=== PATIENT | female | born 2000 | race Caucasian/White ===

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

== ENCOUNTER 2018-10-01 15:33 | Outpatient (CLI) | payer MEDICAID ==
[~2018-10-01] VITALS: Ht 157.5 cm; Wt 57.8 kg
[2018-10-01 15:43] VITALS: Ht 157.5 cm; Wt 57.8 kg
[2018-10-01 15:44] VITALS: BP 117/65; PULSE 90; RESP 18
--- NOTE | 2018-10-01 18:29 | TRIAGE ---
OB Triage Datetime Report Generated by CPN: 10/01/2018 18:29 Datetime: 10/01/2018 18:04 Labor Evaluation Frequency: occ Monitor Mode: External Duration (sec)2399: 50-60 Quality: Mild Pattern: Normal: <= 5 Contractions in 10 Minutes Resting Tone [place]: Relaxed Heart Rate FHR Baseline Rate: 135 Monitor Mode: External US Variability: Moderate 6-25 bpm Accelerations: 15X15 Decelerations: None Category: Category I Pain Assessment Pain Presence: None/Denies Pain Type: N/A Datetime: 10/01/2018 17:01 Labor Evaluation Frequency: occ Monitor Mode: External Duration (sec)2399: 60 Quality: Mild Pattern: Normal: <= 5 Contractions in 10 Minutes Resting Tone [place]: Relaxed Heart Rate FHR Baseline Rate: 135 Monitor Mode: External US Variability: Moderate 6-25 bpm Accelerations: 15X15 Decelerations: Variable Category: Category II Pain Assessment Pain Presence: None/Denies Pain Type: N/A Datetime: 10/01/2018 15:39 Assessment Type: Triage Maternal Assessment Level of Consciousness: Keenly Alert, Responsive DTR's/Clonus: DTRs 2+; No Clonus Headache: Denies Blurred Vision: No Respiratory Effort: Unlabored; Regular Rhythm; Equal Expansion Breath Sounds, Left: Clear and Equal Breath Sounds, Right: Clear and Equal Nausea/Vomiting: Denies RUQ Epigastric Pain: Denies Lower Extremities Edema: None Degree: None Upper Extremities Edema: None Degree: None Facial Edema: None Fall Risk Assessment History of Falling: (0) No Secondary Diagnosis: (0) No Ambulatory Aid: (0) Bedrest/Nurse Assist IV Therapy: (0) No Gait: (0) Normal/Bedrest/Immobile Mental Status: (0) Oriented to Own Ability Fall Score: 0 Fall Risk Score Definition: No Risk: No action required Datetime: 10/01/2018 15:38 Time of Arrival: 10/01/2018 15:25 EGA: 37.4 Arrived By: Ambulatory Arrived From: Home Chief Complaint: to ob triage with referral form for caleb smiley, hardikw due to s<d Movement: Present Contractions: Denies/Absent Rupture of Membranes: Denies Vaginal Bleeding: None Vaginal Discharge: Denies Recent Sexual Intercouse: Denies Abdominal Trauma: Not Applicable Patient Complaints: None Time Provider Notified: 10/01/2018 15:59 Provider Notified: Initial Plan: miaht, bpp, efw
--- NOTE | 2018-11-11 20:02 | PN ---
Triage Information Date/Time Reason for visit: NST and biophysical profile for size less than date Weeks of Gestation 37 weeks and 4 days /Para -0-0-1 Diabetes: none Hypertention: none Objective Heart Rate: 140's Contractions: 6-10 Minutes Apart Disposition: Discharge Assessment/Plan 18 years old 2 para 1-0-0-1 with single intrauterine at 37 weeks and 4 days sent for NST and MAYE for size less than dates. She states good movement. She denies nausea, vomiting, shortness of ryan ath, chest pain, headache, visual changes, vaginal bleeding or LOF. -FHR: No sign of metabolic acidosis- Category I -Contractions: Irregular, resolved with p.o. fluid -SVE: Closed/thick/high/ceph/intact -Ultrasound performed: Normal MAYE, BPP 8 out of 8 -Symptoms and sign of labor, preeclampsia, kick count discussed with patient, she voiced understanding. All of her questions answered. -Patient was discharged home in stable condition with the appropriate discharge instructions provided. I would like patient to have close follow-up with her primary physician or outpatient clinic in 1-2 days or return to triage for worsening symptoms or any other urgent concerns. NARA HOYOS Nov 11, 2018 20:02
== END 2018-10-01 18:30 | disposition home or self-care (01) ==
LOC: OBT 15:33 → L-D 15:35 → OBT 18:30
PROVIDERS: ATTEND Obstetrics & Gynecology
DX: O36.8330 Maternal care for abnormalities of the fetal heart rate or rhythm, third trimester, not applicable or unspecified (principal); O26.843 Uterine size-date discrepancy, third trimester; Z3A.37 37 weeks gestation of pregnancy
CPT/HCPCS: 76815; 76818; Z7500; G0463

== ENCOUNTER 2018-10-04 12:10 | Inpatient (IN) | payer MEDICAID ==
[~2018-10-04] VITALS: Ht 157.5 cm; Wt 59.0 kg
[2018-10-04 12:36] VITALS: Ht 157.5 cm; Wt 59.0 kg
[2018-10-04 12:37] VITALS: BP 118/73; PULSE 86; RESP 20
--- NOTE | 2018-10-04 13:41 | HP ---
Date/Time of Note Date/Time of Note DATE: 10/04/18 TIME: 13:31 OB - History Hx of Present Free Text/Dictation History of present illness: 18-year-old G2, P1 at 3 weeks and 1 day presents for induction of labor for postdates. She denies any leakage of fluid/vaginal bleeding/contractions. Obstetric history: Vaginal delivery at 40 weeks and 2016induced labor Gynecology: Last menstrual period approximately 12/27/2017 CHRISTINE: 10/03/2018 Past medical historychildhood asthma Surgical historynone Family history diabetesmother Social historynegative for tobacco/all/recreational drugs Allergiesno known drug allergies Medicationsprenatal vitamins Physical exam General: No apparent distress Cardiovascular: Regular rate and rhythm Pulmonary: Clear to auscultation bilaterally Abdomen: Gravid Uterus: Babak's 3200 g vertex Extremities: Nontender to palpation Psychological: Alert oriented EFM: Category I 120/mod nicole/+accels/no decels CHRISTINE: 10/03/2018 by LMP consistent with a second trimester ultrasound labs: O + H/H 10.5/30.7 Rubella immune Otitis B surface antigen nonreactive HIV negative Gonorrhea chlamydia negative MSAFP negative GBS negative Assessment/plan: 1. Induction of laboradmit to labor and delivery. Routine labs and vitals. CEFM, [place]. Induction of labor via Misoprostol until Bishops is 8 and then Pitocin. Patient has been counseled on induction of labor. All inquiries addressed. Epidural upon patient request. 2. Anemia of pregnancyferrous sulfate Past Family/Social History * Past Medical, Surgical, Family and Obstetric Histories reviewed from chart. OB Admission Exam Vital Signs Vital Signs Vital Signs Date Temp Pulse Resp B/P (MAP) Pulse Ox O2 O2 Flow FiO2 Time Delivery Rate 10/04/18 98.3 86 20 118/73 12:37 (88) STEFFANIE PARR MD Oct 04, 2018 13:40
[2018-10-04] MEDS: LACTATED RINGER'S 1,000 ML IV SCH ×2 (14:26→15:21)
--- NOTE | 2018-10-04 18:56 | TRIAGE ---
OB Triage Datetime Report Generated by CPN: 10/04/2018 18:56 Datetime: 10/04/2018 18:00 Maternal Assessment Level of Consciousness: Keenly Alert, Responsive DTR's/Clonus: DTRs 2+ Headache: Denies Blurred Vision: No Nausea/Vomiting: Denies RUQ Epigastric Pain: Denies Facial Edema: None Labor Evaluation Frequency: IRREG Monitor Mode: External Quality: Mild Pattern: Normal: <= 5 Contractions in 10 Minutes Resting Tone [place]: Relaxed Heart Rate FHR Baseline Rate: 135 Monitor Mode: External US FHR Baseline Changes: No Baseline Change Variability: Moderate 6-25 bpm Accelerations: 15X15 Decelerations: None Category: Category I Pain Assessment Pain Scale: 0 Pain Presence: Intermittent Pain Type: Contraction Pain Location: Abdomen Pain Goal: 0 Membrane Status: Intact Datetime: 10/04/2018 17:25 Assessment Type: Admission Assessment Vaginal Bleeding: None Maternal Assessment Level of Consciousness: Keenly Alert, Responsive DTR's/Clonus: DTRs 2+; No Clonus Headache: Denies Blurred Vision: No Respiratory Effort: Unlabored; Regular Rhythm; Equal Expansion Breath Sounds, Left: Clear and Equal Breath Sounds, Right: Clear and Equal Nausea/Vomiting: Denies RUQ Epigastric Pain: Denies Lower Extremities Edema: None Degree: None Upper Extremities Edema: None Degree: None Facial Edema: None Fall Risk Assessment History of Falling: (0) No Secondary Diagnosis: (0) No Ambulatory Aid: (0) Bedrest/Nurse Assist IV Therapy: (0) No Gait: (0) Normal/Bedrest/Immobile Mental Status: (0) Oriented to Own Ability Fall Score: 0 Fall Risk Score Definition: No Risk: No action required Labor Evaluation Frequency: IRREG Duration (sec)2399: 60 Quality: Mild Pattern: Normal: <= 5 Contractions in 10 Minutes Resting Tone [place]: Relaxed Contraction Comments: PT DOES NOT FEEL UCS Heart Rate FHR Baseline Rate: 145 Variability: Moderate 6-25 bpm Accelerations: 15X15 Decelerations: None Category: Category I Pain Assessment Pain Scale: 0 Pain Presence: Intermittent Pain Type: Contraction Pain Location: Abdomen Pain Goal: 0 Vaginal Exam Dilatation (cms): 0.0 Effacement (%): 0 Membrane Status: Intact Datetime: 10/04/2018 16:29 Labor Evaluation Frequency: IREG Monitor Mode: External Quality: Mild Pattern: Normal: <= 5 Contractions in 10 Minutes Resting Tone [place]: Relaxed Heart Rate FHR Baseline Rate: 145 Monitor Mode: External US FHR Baseline Changes: No Baseline Change Variability: Moderate 6-25 bpm Accelerations: 15X15 Decelerations: None Category: Category I Pain Assessment Pain Scale: 0 Pain Presence: Intermittent Pain Type: N/A Pain Location: Abdomen Pain Goal: 0 Datetime: 10/04/2018 15:29 Maternal Assessment Level of Consciousness: Keenly Alert, Responsive DTR's/Clonus: DTRs 2+ Headache: Denies Blurred Vision: No Nausea/Vomiting: Denies RUQ Epigastric Pain: Denies Facial Edema: None Labor Evaluation Frequency: IRREG Monitor Mode: External Quality: Mild Pattern: Normal: <= 5 Contractions in 10 Minutes Resting Tone [place]: Relaxed Heart Rate FHR Baseline Rate: 145 Monitor Mode: External US FHR Baseline Changes: No Baseline Change Variability: Moderate 6-25 bpm Accelerations: 15X15 Decelerations: None Category: Category I Pain Assessment Pain Scale: 0 Pain Presence: Intermittent Pain Type: Contraction Pain Location: Abdomen Pain Goal: 0 Pain Assessment Comments: PT DENIES FEELING UCS Vaginal Exam Dilatation (cms): 0.0 Effacement (%): 0 Exam By: VILLAGOMEZ RN Membrane Status: Intact Vaginal Bleeding: None Cervix, Consistency: Moderate Cervix, Position: Midposition Datetime: 10/04/2018 14:26 Maternal Assessment Level of Consciousness: Keenly Alert, Responsive DTR's/Clonus: DTRs 2+ Headache: Denies Blurred Vision: No Nausea/Vomiting: Denies RUQ Epigastric Pain: Denies Facial Edema: None Labor Evaluation Frequency: IRREG Monitor Mode: External Duration (sec)2399: 60 Quality: Mild Pattern: Normal: <= 5 Contractions in 10 Minutes Resting Tone [place]: Relaxed Heart Rate FHR Baseline Rate: 140 Monitor Mode: External US FHR Baseline Changes: No Baseline Change Variability: Moderate 6-25 bpm Accelerations: 15X15 Decelerations: None Category: Category I Pain Assessment Pain Scale: 0 Pain Presence: Intermittent Pain Type: Contraction Pain Location: Abdomen Pain Goal: 0 Pain Assessment Comments: PT DENIES FEELING UCS Membrane Status: Intact Datetime: 10/04/2018 13:23 Maternal Assessment Level of Consciousness: Keenly Alert, Responsive DTR's/Clonus: DTRs 2+ Headache: Denies Blurred Vision: No Nausea/Vomiting: Denies RUQ Epigastric Pain: Denies Facial Edema: None Labor Evaluation Frequency: irreg Monitor Mode: External Quality: Mild Pattern: Normal: <= 5 Contractions in 10 Minutes Resting Tone [place]: Relaxed Heart Rate FHR Baseline Rate: 135 Monitor Mode: External US FHR Baseline Changes: No Baseline Change Variability: Moderate 6-25 bpm Accelerations: 15X15 Decelerations: None Category: Category I Pain Assessment Pain Scale: 0 Pain Presence: Intermittent Pain Type: Contraction Pain Location: Abdomen Pain Goal: 0 Vaginal Exam Dilatation (cms): 0.0 Effacement (%): 0 Exam By: alpesh rn Membrane Status: Intact Vaginal Bleeding: None Cervix, Consistency: Moderate Cervix, Position: Posterior Datetime: 10/04/2018 12:58 Maternal Assessment Level of Consciousness: Keenly Alert, Responsive DTR's/Clonus: DTRs 2+; No Clonus Headache: Denies Blurred Vision: No Respiratory Effort: Unlabored; Regular Rhythm; Equal Expansion Breath Sounds, Left: Clear and Equal Breath Sounds, Right: Clear and Equal Nausea/Vomiting: Denies RUQ Epigastric Pain: Denies Facial Edema: None Fall Risk Assessment History of Falling: (0) No Secondary Diagnosis: (0) No Ambulatory Aid: (0) Bedrest/Nurse Assist Gait: (0) Normal/Bedrest/Immobile Mental Status: (0) Oriented to Own Ability Datetime: 10/04/2018 12:32 Maternal Assessment Level of Consciousness: Keenly Alert, Responsive DTR's/Clonus: DTRs 2+; No Clonus Headache: Denies Blurred Vision: No Respiratory Effort: Unlabored; Regular Rhythm; Equal Expansion Breath Sounds, Left: Clear and Equal Breath Sounds, Right: Clear and Equal Nausea/Vomiting: Denies RUQ Epigastric Pain: Denies Facial Edema: None Temperature Route: Axillary Fall Risk Assessment History of Falling: (0) No Secondary Diagnosis: (0) No Ambulatory Aid: (0) Bedrest/Nurse Assist IV Therapy: (0) No Gait: (0) Normal/Bedrest/Immobile Mental Status: (0) Oriented to Own Ability Fall Score: 0 Fall Risk Score Definition: No Risk: No action required Datetime: 10/04/2018 12:28 Maternal Assessment Level of Consciousness: Keenly Alert, Responsive DTR's/Clonus: DTRs 2+ Headache: Denies Blurred Vision: No Nausea/Vomiting: Denies RUQ Epigastric Pain: Denies Facial Edema: None Monitor Mode: External Pattern: Normal: <= 5 Contractions in 10 Minutes Resting Tone [place]: Relaxed Heart Rate FHR Baseline Rate: 140 Monitor Mode: External US FHR Baseline Changes: No Baseline Change Variability: Moderate 6-25 bpm Accelerations: 15X15 Decelerations: None Category: Category I Pain Assessment Pain Scale: 0 Pain Presence: Intermittent Pain Type: Contraction Pain Location: Abdomen Pain Goal: 0 Membrane Status: Intact Datetime: 10/04/2018 12:13 Time of Arrival: 10/04/2018 17:00 EGA: 38.0 Arrived By: Ambulatory Arrived From: Home Chief Complaint: R/O IUGR Movement: Present Contractions: Irregular Rupture of Membranes: Denies Vaginal Bleeding: None Vaginal Discharge: Denies Recent Sexual Intercouse: Denies Abdominal Trauma: Not Applicable Patient Complaints: None Time Provider Notified: 10/04/2018 12:30 Provider Notified: DR MILESTONE Initial Plan: EFM,US Datetime: 10/01/2018 15:39 Fall Score: 0 Fall Risk Score Definition: No Risk: No action required Datetime: 10/01/2018 15:38 EGA: 37.4
--- NOTE | 2018-10-04 18:57 | HP ---
Date/Time of Note Date/Time of Note DATE: 10/04/18 TIME: 18:57 OB - History Hx of Present Free Text/Dictation History of present illness:18-year-old G2, P1 at 38 weeks gestation with intrauterine growth restriction presents for biophysical profile. CHRISTINE: 10/18/2018 by LMP consistent with a first trimester ultrasound Past medical history: Noncontributory Past surgical history: section 2016 Gynecology history: Last menstrual period 01/10/2018 Obstetric history: section at 38 weeks gestation in 2017 Social history: Negative for tobacco/alcohol/recreational drugs Allergies: No known drug allergies Medications: vitamins Sickle exam: General: No apparent distress Cardiovascular: Regular rate rhythm Pulmonary: Clear to auscultation bilaterally Abdomen: Gravid Uterus: 2400 g text Psychological: Alert and oriented Extremities: Nontender to palpation Vitals: Stable and within normal limits Electronic monitor: Category 1 Ultrasound: 10/01/2018 with an estimated weight of 2435 g 3.7 percentile with a systolic diastolic ratio measuring 2.4, 2.0 and 2.3 Physical profile: 8 out of 8 Ultrasound 10/04/2018 biophysical profile 8 out of 8 and systolic diastolic ratio 2.4, 2.0, 2.3 Assessment/plan: 1. Intrauterine growth restriction-patient will be admitted to labor and delivery for section on 10/05/2017. Routine labs. Continues electronic monitor. MFM consulted. Patient informed of risks benefits alternatives indications. Consented for section. 2. History of sectionpatient for repeat section on 10/05/2017. N.p.o. after midnight. Past Family/Social History * Past Medical, Surgical, Family and Obstetric Histories reviewed from chart. OB Admission Exam Vital Signs Vital Signs Vital Signs Date Temp Pulse Resp B/P (MAP) Pulse Ox O2 O2 Flow FiO2 Time Delivery Rate 10/04/18 98.3 86 20 118/73 12:37 (88) MILESTONESTEFFANIE MD Oct 04, 2018 18:57
[2018-10-04] MEDS ORDERED: CARBOPROST 250 MCG INJ IM PRN (19:00)
[2018-10-04] MEDS ORDERED: CEFAZOLIN 2 GM/50 ML (PMX) 50 ML IVPB SCH (19:00)
[2018-10-04] MEDS ORDERED: MISOPROSTOL 200 MCG TAB PR PRN (19:00)
[2018-10-04] MEDS ORDERED: OXYTOCIN 30 UNITS/LR 500 ML IV PRN (19:00)
[2018-10-04] MEDS ORDERED: METHYLERGONOVINE 0.2 MG INJ IM PRN (19:00)
[2018-10-04] MEDS ORDERED: OXYCODONE/ACETAMINOPHEN (5/325) TAB PO PRN (19:00)
[2018-10-04] MEDS ORDERED: IBUPROFEN 600 MG TAB PO PRN (19:00)
[2018-10-04] MEDS ORDERED: LIDOCAINE 1% (MPF) 30 ML INJ INJ PRN (19:00)
[2018-10-04] MEDS ORDERED: OXYTOCIN 30 UNITS/LR 500 ML IV SCH ×2 (19:00)
[2018-10-05] MEDS: LACTATED RINGER'S 1,000 ML IV SCH ×4 (01:30→14:22)
[2018-10-05] MEDS ORDERED: AZITHROMYCIN 500MG/NS (PMX) 250 ML IVPB STA (07:28)
[2018-10-05] MEDS ORDERED: ONDANSETRON 4 MG INJ ONE (08:06)
[2018-10-05] MEDS ORDERED: morphine SULFATE/PF (10 MG/10 ML) INJ ONE (08:19)
[2018-10-05] MEDS ORDERED: METOCLOPRAMIDE 10 MG INJ ONE (08:30)
[2018-10-05] MEDS ORDERED: LACTATED RINGER'S 1,000 ML IV ONE (08:48)
--- NOTE | 2018-10-05 08:48 | PREAC ---
Date/Time of Note Date/Time of Note DATE: 10/05/18 TIME: 08:45 Anesthesia Eval and Record Evaluation Time Pre-Procedure Interview DATE: 10/05/18 TIME: 07:53 Age 18 Sex female NPO: 8 hrs Preoperative diagnosis iup @ 40 wks, contractions, iugr, postdates, prev. c/s Planned procedure repeat c/s Past Medical History Past Medical History: Includes : : (2), Para: (1), Gestational age: (40 wkws.), Other (iugr) Surgery & Anesthesia Issues No known issue Meds Anticoagulation: No Beta Charlie within 24 hr: No Reason Beta Charlie not given: Pt. not on B-Charlie Active Scripts Loperamide Hcl* (Imodium*) 2 Mg Capsule, 2 MG PO .AFTER EA LOOSE BM PRN for DIARRHEA, #10 TAB Prov:[place] SPARROW MD 02/28/16 Reported Medications Folic Acid* (Folic Acid*) 0.8 Mg Tablet, 0.8 MG PO DAILY, TAB 02/28/16 Multivit/Min/Fol Ac/Iron/Pren* ( S*) 1 Tab Tab, 1 TAB PO DAILY, TAB 02/28/16 Current Medications Lactated Ringer's 1,000 ml @ 125 mls/hr Q8H IV Last administered on 10/05/18at 01:30; Admin Dose 125 MLS/HR; Start 10/04/18 at 13:30 Lactated Ringer's 1,000 ml @ 125 mls/hr Q8H IV Last administered on 10/05/18at 07:40; Admin Dose 125 MLS/HR; Start 10/05/18 at 05:00 Lidocaine (Xylocaine 1% (Mpf)) 30 ml ONCE PRN INJ .EPISIOTOMY; Start 10/04/18 at 19:00 Oxytocin/Lactated Ringer's 500 ml @ 500 mls/hr ONCE POST IV ; Start 10/04/18 at 19:00 Oxytocin/Lactated Ringer's 500 ml @ 125 mls/hr POST IV ; Start 10/04/18 at 19:00 Ibuprofen (Motrin) 600 mg ONCE PRN PO .PAIN 1-5; Start 10/04/18 at 19:00 Oxycodone/ Acetaminophen (Percocet (5/ 325)) 2 tab ONCE PRN PO .PAIN 6-10; Start 10/04/18 at 19:00 Oxytocin/Lactated Ringer's 500 ml @ 0 mls/hr ONCE PRN IV .VAGINAL BLEEDING; Start 10/04/18 at 19:00 Methylergonovine Maleate (Methergine) 0.2 mg ONCE PRN IM .VAGINAL BLEEDING; Start 10/04/18 at 19:00 Carboprost Tromethamine (Hemabate) 250 mcg ONCE PRN IM .VAGINAL BLEEDING; Start 10/04/18 at 19:00 Misoprostol (Cytotec) 1,000 mcg ONCE PRN UT .VAGINAL BLEEDING; Start 10/04/18 at 19:00 Cefazolin Sodium/ Dextrose 50 ml @ 100 mls/hr ONCE IVPB ; Start 10/04/18 at 19:00 Meds reviewed: Yes Allergies Coded Allergies: No Known Drug Allergies (Verified Allergy, Unknown, 02/28/16) Allergies Reviewed: Yes Labs/Studies Labs Reviewed: Reviewed by anesthesiologist Result Diagram: 10/04/18 1810 Laboratory Tests 10/04/18 18:10 Blood Bank Test 10/04/18 18:10 Antibody Screen NEGATIVE Blood Type O POSITIVE Rh Immune Globulin Candidate NO test: Positive Studies: ECG (n/a), CXR (n/a) Pre-procedure Exam Last vitals Vital Signs Date Temp Pulse Resp B/P (MAP) Pulse Ox O2 O2 Flow FiO2 Time Delivery Rate 10/04/18 98.3 86 20 118/73 12:37 (88) Airway: Adequate mouth opening, Adequate thyromental dist Mallampati: Mallampati II Teeth: Normal Lung: Normal Heart: Normal ASA Physical Status ASA physical status: 2 Emergency: E Planned Anesthetic General/MAC: MAC Neuraxial: Spinal Planned Pain Management Sub-arachniod narcotics, Parenteral pain med, Local by surgeon Pre-operative Attestations Prior to commencing anesthesia and surgery, the patient was re-evaluated, there was verification of: *The patient's identity *The results of appropriate recent lab work and preoperative vital signs *The above evaluation not changing prior to induction *Anesthetic plan, risk benefits, alternative and complications discussed with patient/family; questions answered; patient/family understands, accepts and wishes to proceed. Chairman & Ceo used SHARMIN HARTMANN MD Oct 05, 2018 08:48
[2018-10-05] MEDS ORDERED: MIDAZOLAM 1 MG/ML 2 ML INJ ONE (08:52)
[2018-10-05] MEDS ORDERED: MEPERIDINE 25 MG INJ IV PRN (09:00)
[2018-10-05] MEDS ORDERED: NALOXONE (0.4 MG/ML) INJ IV PRN (09:00)
[2018-10-05] MEDS ORDERED: EPHEDrine 25 MG/5 ML SYG IV PRN (09:00)
[2018-10-05] MEDS ORDERED: HYDROmorphONE 0.5 MG/0.5 ML SYG IV PRN ×2 (09:00)
[2018-10-05] MEDS ORDERED: ONDANSETRON 4 MG INJ IV PRN (09:00)
[2018-10-05] MEDS ORDERED: MIDAZOLAM 1 MG/ML 2 ML INJ IV PRN (09:00)
[2018-10-05] MEDS ORDERED: NALBUPHINE HCL (10 MG/1 ML) INJ IV PRN (09:00)
[2018-10-05] MEDS ORDERED: DIPHENHYDRAMINE 50 MG INJ IV PRN ×2 (09:00)
[2018-10-05] MEDS ORDERED: KETOROLAC 30 MG INJ IV PRN (09:00)
[2018-10-05] MEDS ORDERED: ZOLPIDEM 5 MG TAB PO PRN (09:00)
[2018-10-05] MEDS ORDERED: OXYTOCIN 30 UNITS/LR 500 ML IV SCH (09:42)
[2018-10-05] MEDS ORDERED: OXYTOCIN 30 UNITS/LR 1,000 ML IV ONE (09:50)
[2018-10-05] MEDS ORDERED: EPHEDrine SULFATE 50 MG/5 ML SYG ONE (09:50)
[2018-10-05] MEDS ORDERED: PHENYLephrine 10 MG INJ ONE (09:50)
--- NOTE | 2018-10-05 09:56 | OPR ---
Operative Report Planned Procedure Procedure date Oct 05, 2018 Procedure(s) low transverse section Performed by see signature line Post-Procedure Findings Live Baby [], Apgars [] and [], weight [], position [], [] presentation []cord. Specimen(s) none Grafts/Implant(s) none Complication(s) none MILESTONE,STEFFANIE DHILLON Oct 05, 2018 09:56
[2018-10-05] MEDS ORDERED: CARBOPROST 250 MCG INJ IM PRN (10:00)
[2018-10-05] MEDS ORDERED: METHYLERGONOVINE 0.2 MG INJ IM PRN (10:00)
[2018-10-05] MEDS ORDERED: OXYTOCIN 30 UNITS/LR 500 ML IV PRN (10:00)
[2018-10-05] MEDS ORDERED: NACL 0.9% 3 ML SYG IV SCH (10:00)
[2018-10-05] MEDS ORDERED: OXYCODONE/ACETAMINOPHEN (5/325) TAB PO PRN ×2 (10:00)
[2018-10-05] MEDS ORDERED: MISOPROSTOL 200 MCG TAB PR PRN (10:00)
--- NOTE | 2018-10-05 11:22 | OPR ---
Operative Report Planned Procedure Free Text/Dictation Preoperative Diagnosis 1. IUP at 38 1/7 weeks 2. Intrauterine growth restriction Postoperative Diagnosis Same Operation/Procedure Performed: low transverse section Surgeon: MD Rubén Pie Icer Machine: MD Afsaneh Anesthesia: Epidural Estimated Blood Loss: 500 ml Specimen: Cord blood Implants: Surgicel Tubes/Drains: None Complications: None Fluids: Crystalloid Urine output: 300 ml clear Findings: Female weighing 2645 g, apgars 9/9. Adhesions from bladder to anterior aspect of uterus. Keloid noted around skin incision. Normal uterus. Bilateral normal appearing fallopian tubes and ovaries. Indications: Intrauterine growth restriction Procedure: After informed consent was obtained, the patient was taken to the operating room. She was placed in dorsal lithotomy position with left lateral tilt to avoid aortocaval compression. Bilateral sequential compression devices were placed on the patient's lower extremities. She underwent anesthesia without difficulty. She was prepped and draped in routine sterile fashion. A timeout was performed identifying the patient and the procedure and all parties were in agreement. An Allis skin test confirmed adequate anesthesia. An 8 cm transverse skin incision was made overlying the prior skin incision and carried down to the underlying fascia using a scalpel and bovie. The fascia was nicked on either sides of the linea alba and extended bilaterally. The peritoneum was entered bluntly. An Nicolas retractor was placed. Adhesions were lysed from bladder to anterior aspect of uterus via sharp and blunt dissection. Hysterotomy was next performed clear fluid noted. Infants head was grasped, elevated to the level of the incision and delivered atraumatically followed by the body. The mouth and nares were bulb suctioned. The cord was clamped x2 divided between the clamps. Cord blood was collected. The placenta was delivered manually intact with three-vessel cord. The uterus was cleared of all clots and debris's using a moist lap sponge. The uterine incision was closed in a 2 layer fashion using 0 Monocryl. Surgicel was placed over the incision and anterior aspect of the uterus. Hemostasis was noted. The fascia was reapproximated using 0 Monocryl. The subcutaneous tissues was reapproximated using 3-0 Monocryl. The skin was was reapproximated using 3-0 Monocryl. Steri- Strips were applied. Dressing was applied as well as an abdominal binder. The uterus was firm at the end of the procedure. The patient tolerated the procedure well was transferred to recovery in stable condition. Procedure date Oct 05, 2018 Procedure(s) low transverse section Performed by see signature line Pie Icer Machine: ELODIA PAINTING MD Pre-procedure diagnosis IUGR [id number] Anesthesia Type: [id number] epidural Post-Procedure Post-procedure diagnosis same Findings Live Baby female, Apgars 9 and 9, weight 2645 g, position oa, vertex presentation no nuchal cord. Estimated Blood Loss: 500 - 600 mls Specimen(s) none Grafts/Implant(s) none Complication(s) none Procedure Description section STEFFANIE PARR MD Oct 05, 2018 11:17
[2018-10-05 13:15] VITALS: BP 117/60; PULSE 88; RESP 16
[2018-10-05 16:15] VITALS: BP 111/55; PULSE 84; RESP 18
--- NOTE | 2018-10-05 16:53 | PAC ---
Date/Time of Note Date/Time of Note DATE: 10/05/18 TIME: 16:53 Post-Anesthesia Notes Post-Anesthesia Note Last documented vital signs Vital Signs Date Temp Pulse Resp B/P (MAP) Pulse Ox O2 O2 Flow FiO2 Time Delivery Rate 10/05/18 98.2 84 18 111/55 98 Room Air 16:15 (73) Activity: WNL Respiratory function: WNL Cardiovascular function: WNL Mental status: Baseline Pain reasonably controlled: Yes Hydration appropriate: Yes Nausea/Vomiting absent: Yes SHARMIN HARTMANN MD Oct 05, 2018 16:53
--- NOTE | 2018-10-05 16:55 | OPPN ---
Date/Time of Note Date/Time of Note DATE: 10/06/18 TIME: 00:05 Anesthesia Follow up Anesthesia Follow up Last documented vital signs Vital Signs Date Temp Pulse Resp B/P (MAP) Pulse Ox O2 O2 Flow FiO2 Time Delivery Rate 10/05/18 98.2 84 18 111/55 98 Room Air 16:15 (73) Respiratory function: WNL Cardiovascular function: WNL Comments S: pt. pod #1. min. bt pain. min. need for bt pain meds ie. nsaids/opiates. ambulating. min. n/v. O: vss, afeb. A: min. bt pain sec. to it mso4. P: no complications. SHARMIN HARTMANN MD Oct 05, 2018 16:55
[2018-10-05 19:40] VITALS: BP 120/76; PULSE 88; RESP 18
[2018-10-06] VITALS: BP 109/65; PULSE 86; RESP 18
[2018-10-06] MEDS: LACTATED RINGER'S 1,000 ML IV SCH ×2 (00:18→05:00)
[2018-10-06 04:20] VITALS: BP 96/60; PULSE 88; RESP 18
[2018-10-06 08:30] VITALS: BP 98/54; PULSE 102; RESP 17
--- NOTE | 2018-10-06 10:27 | PN ---
Date/Time of Note Date/Time of Note DATE: 10/06/18 TIME: 10:27 OB Subjective Subjective Subjective Subjective: Tolerating regular diet. Not voiding. De [place]zman out in a.m. Not Ambulating. Vaginal bleeding within normal limits. Breast feeding. Complaints: None Mode of delivery: section Objective: Vital signs: 96/60 H/H: 10.9/31.6 General: No apparent distress Breast: Normal Extremities: nontender to palpation Incision: Dressing in place Assessment/plan: 1. Postoperative day #1 section-routine care 2. Anemia acute blood loss-ferrous sulfate Disposition: likely discharge tomorrow MILESTONE,STEFFANIE DHILLON Oct 06, 2018 10:27
[2018-10-06] MEDS: IBUPROFEN 600 MG TAB PO SCH ×3 (11:45→23:48)
[2018-10-06 16:20] VITALS: BP 88/58; PULSE 93; RESP 16
[2018-10-06 19:30] VITALS: BP 122/72; PULSE 78; RESP 18
[2018-10-07 04:10] VITALS: BP 103/75; PULSE 75; RESP 20
[2018-10-07] MEDS: IBUPROFEN 600 MG TAB PO SCH ×3 (05:29→13:21)
[2018-10-07 08:00] VITALS: BP 101/60; PULSE 82; RESP 18
--- NOTE | 2018-10-07 12:56 | QN ---
Documentation Comment POD#2 is stable afebrile tolerates Diet No VB +Flatus +voids VS stable Gen NAD Abd soft NT ND Genitalia No blood at perineum ->ambulation -->Discharge plan tomorrow CHRISTINE HOLDER M.D. Oct 07, 2018 12:56
[2018-10-07 16:00] VITALS: BP 110/65; PULSE 81; RESP 16
[2018-10-07 20:05] VITALS: BP 117/73; PULSE 85; RESP 19
[2018-10-08] MEDS: IBUPROFEN 600 MG TAB PO SCH ×3 (00:28→13:24)
[2018-10-08 04:00] VITALS: BP 111/60; PULSE 71; RESP 18
[2018-10-08 07:30] VITALS: BP 114/65; PULSE 76; RESP 18
--- NOTE | 2018-10-08 12:13 | PN ---
Date/Time of Note Date/Time of Note DATE: 10/08/18 TIME: 12:11 OB Subjective Subjective Subjective POD#3 Patient is doing well. She denies nausea, vomiting, shortness of breath, chest pain, headache. She has been ambulating without difficulty, tolerating regular diet. Pain is well controlled on current medications OB Objective Objective Objective VS - Last 72 Hours, by Label Date Temp Pulse Resp B/P (MAP) Pulse Ox O2 O2 Flow FiO2 Time Delivery Rate 10/08/18 98.2 76 18 114/65 Room Air 07:30 (81) 10/08/18 97.8 71 18 111/60 Room Air 04:00 (77) 10/07/18 98.1 85 19 117/73 Room Air 20:05 (88) 10/07/18 98.0 81 16 110/65 Room Air 16:00 (80) 10/07/18 98.2 82 18 101/60 Room Air 08:00 (74) 10/07/18 98.3 75 20 103/75 Room Air 04:10 (84) 10/06/18 98.3 78 18 122/72 Room Air 19:30 (89) 10/06/18 98.1 93 16 88/58 (68) Room Air 16:20 10/06/18 98.7 102 17 98/54 (69) 99 Room Air 08:30 10/06/18 98.6 88 18 96/60 (72) Room Air 04:20 10/06/18 98.4 86 18 109/65 97 Room Air 00:00 (80) 10/05/18 98.1 88 18 120/76 96 Room Air 19:40 (91) 10/05/18 98.2 84 18 111/55 98 Room Air 16:15 (73) 10/05/18 97.8 88 16 117/60 98 Room Air 13:15 (79) General: AAO X 3, comfortable, NAD, appropriate mood and affect. ABD: +BS. Soft, non-tender. Uterus 2 cm below umbilicus Incision: Clear, dry, intact. No erythema, drainage or induration. Flank: No CVA tenderness (B/L) LE: Mild edema. No clubbing, cyanosis, thigh or calf tenderness (B/L). Homans 'sign is negative OB Assessment/Plan Other plan: 18 y/o s/p repeat delivery at 38 weeks and 1 day for IUGR. POD#3 - AF, VSS - Baby is doing well, at bed side. She is bonding well - Contraception methods with R/B/A/FR discussed - Continue care - Discharge home - Rx and instruction given - Follow up in one and 6 weeks NARA HOYOS Oct 08, 2018 12:13
--- NOTE | 2018-10-08 12:14 | DS ---
Date/Time of Note Date/Time of Note DATE: 10/08/18 TIME: 12:13 Obstetrical Discharge Record Final Diagnosis Final Diagnosis: Term delivered Other Final Diagnosis 18 y/o s/p repeat delivery at 38 weeks and 1 day for IUGR. POD#3. Post course was unremarkable. She is ambulating and tolerating regular diet. She is voiding without difficulty. Pain is controlled on current medication. - AF, VSS - Baby is doing well, at bed side. She is bonding well - Contraception methods with R/B/A/FR discussed - Continue care - Discharge home - Rx and instruction given - Follow up in one and 6 weeks Section Section: Repeat Condition on Discharge Physical Assessment Voiding: Yes Bowel Movement: Yes Breast: Soft, non-tender Fundus: Firm Calf Tenderness: No Patient Condition: Stable NARA HOYOS Oct 08, 2018 12:14
--- NOTE | 2018-10-09 17:48 | DELSUM ---
Delivery Summary A-C Datetime Report Generated by N: 10/09/2018 17:48 DELIVERY PERSONNEL Respiratory Care Instructor: Urmila Vargas MATERNAL INFORMATION Delivery Anesthesia: Spinal Medications in Delivery: SEE ANESTHESIA FLOWSHEET Delivery QBL (ml): 500 (Annotations: Data stored by [facility] on behalf of user) Placenta Cultured: No Maternal Complications: None LABOR SUMMARY EDC: 10/18/2018 00:00 No. Babies in Womb: 1 Attempted: No Labor Anesthesia: SPINAL LABOR INFORMATION Reason for Induction: Not Applicable Group B Beta Strep: Positive Antibiotics # of Doses: 2 Antibiotics Time of Last Dose: 10/05/2018 08:30 Steroids Given: None Reason Steroids Not Administered: Not Applicable MEMBRANES Membranes Rupture Method: Artificial Rupture of Membranes: 10/05/2018 08:49 Length of Rupture (hr): 0.02 Amniotic Fluid Color: Clear Amniotic Fluid Amount: Moderate Amniotic Fluid Odor: None STAGES OF LABOR Stage 3 hr: 0 Stage 3 min: 1 CSECTION DELIVERY Primary Indication: Repeat Elective Other Primary Indication: IUGR CSection Urgency: Elective CSection Incidence: Repeat Labor: N/A Elective: N/A CSection Incision: Lower Uterine Transverse BABY A INFORMATION Infant Delivery Date/Time: 10/05/2018 08:50 Method of Delivery: Born in Route : No : N/A Forceps: N/A Vacuum Extraction: N/A Shoulder Dystocia : N/A SHOULDER DYSTOCIA BABY A Delivery Date/Time: 10/05/2018 08:50 PRESENTATION/POSITION BABY A Presentation: Cephalic Cephalic Presentation: Vertex Breech Presentation: N/A PLACENTA INFORMATION BABY A Placenta Delivery Time : 10/05/2018 08:51 Placenta Method of Delivery: Manual Removal Placenta Status: Delivered SCORES BABY A Heart Rate 1 min: >100 bpm Resp Effort 1 min: Good Cry Reflex Irritability 1 min: Cough/Sneeze/Pulls Away Muscle Tone 1 min: Active Motion Color 1 min: Body Peyton, Extremit Blue Resuscitation Effort 1 min: Tactile Stimulation SCORE 1 MIN: 9 Heart Rate 5 min: >100 bpm Resp Effort 5 min: Good Cry Reflex Irritability 5 min: Cough/Sneeze/Pulls Away Muscle Tone 5 min: Active Motion Color 5 min: Body Peyton, Extremit Blue Resuscitation Effort 5 min: Tactile Stimulation SCORE 5 MIN: 9 INFANT INFORMATION BABY A Gestational Age at Delivery: 38.1 Gestational Status: Early Term- 37- 38.6 Weeks Infant Outcome : Liveborn, with signs of life Infant Condition : Stable Sex: Female IDENTIFICATION/MEDS BABY A ID Band Number: [id number] ID Band Location: Right Leg; Left Arm Sensor Number: [id number] Sensor Location : Cord Clamp Vitamin K Given : Not Given Erythromycin Given: Not Given WEIGHT/LENGTH BABY A Infant Birthweight (gm): 2675 Weight (lb): 5 Weight (oz): 14 Length (in): 18.50 Infant Length (cm): 46.99 CORD INFORMATION BABY A No. Cord Vessels: 3 Nuchal Cord : N/A Cord Blood Taken: Yes Suction: Mouth; Nose ASSESSMENT BABY A Infant Complications: None Physical Findings at Delivery: Within Normal Limits Infant Respirations: Appears Normal Pre Sales Technical Consultant/ALS Called : Yes Infant Care By: BEBO CASTANO Transferred To: Remains with Mother
== END 2018-10-08 17:30 | disposition home or self-care (01) | DRG 787 ==
LOC: OBT 12:10 → L-D 12:10 → OBT 17:00 → L-D 17:00 → PP1 10-05 12:58
PROVIDERS: ADMIT Obstetrics & Gynecology; ATTEND Obstetrics & Gynecology
PROC: 10D00Z1 Extraction of Products of Conception, Low, Open Approach (ICD-10-PCS; principal; 2018-10-05 08:00)
DX: O36.5930 Maternal care for other known or suspected poor fetal growth, third trimester, not applicable or unspecified (principal); D62 Acute posthemorrhagic anemia; O90.81 Anemia of the puerperium; Z3A.38 38 weeks gestation of pregnancy; Z37.0 Single live birth
CPT/HCPCS: 76818; 76820; 81001; 85025; 85610; 85730; 86592; 86850; 86900; 86901; 87340; 88307; 99464; G0463; J0456; J0690; J1200; J1885; J2250; J2274; J2370; J2405; J2590; J2765; J7120